=== PATIENT | female | born 1965 | race Caucasian/White ===

== ENCOUNTER → 2017-05-17 | Outpatient (CLI) | payer OTHER | LOC: BRMIMAGING 16:23 | PROVIDERS: ATTEND Internal Medicine | DX: M25.562 Pain in left knee (principal); M25.572 Pain in left ankle and joints of left foot; M79.672 Pain in left foot; M25.521 Pain in right elbow | CPT/HCPCS: 73080-PO; 73562-PO; 73610-PO; 73630-PO ==

== ENCOUNTER → 2017-06-01 | Outpatient (CLI) | payer OTHER | LOC: BRMIMAGING 16:47 | DX: S92.525A Nondisplaced fracture of middle phalanx of left lesser toe(s), initial encounter for closed fracture (principal) | CPT/HCPCS: 73660-PO ==

== ENCOUNTER → 2017-09-07 | Outpatient (CLI) | payer OTHER | LOC: BRMIMAGING 11:18 | PROVIDERS: ATTEND Internal Medicine | DX: M25.521 Pain in right elbow (principal); M79.89 Other specified soft tissue disorders | CPT/HCPCS: 73080-PO ==